=== PATIENT | female | born 2005 | race African-American/Black ===

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

== ENCOUNTER 2024-01-17 12:41 | Emergency (ER) | payer OTHER ==
[~2024-01-17] VITALS: Ht 154.9 cm; Wt 65.8 kg
[~2024-01-17 12:41] MED LIST: AMOX1TAB5 PO; TUSSIN DM LIQU118 ML PO; ZYRTEC10 MG PO
[2024-01-17 14:25] LABS: HEMATOCRIT 39.9 % (36.0-45.00); HEMOGLOBIN 13.5 g/dL (12.0-15.00); MEAN CELL VOLUME 87.8 fL (80.00-100.00); MEAN CORPUSCULAR HEMOGLOBIN 29.6 pg (27.00-32.0); MEAN CORPUSCULAR HGB CONC 33.7 g/dl (32.0-36.0); PLATELET COUNT 366 K/uL (150-450); RED BLOOD COUNT 4.55 M/uL (4.00-6.00); RED CELL DISTRIBUTION WIDTH 13.7 % (11.5-14.5)
[2024-01-17 16:38] LABS: PH,URINE 7.5 (5.0-8.0); URINE APPEARANCE Clear; URINE BILIRRUBIN Negative (NEGATIVE); URINE BLOOD Negative; URINE COLOR Yellow; URINE GLUCOSE Negative (NEGATIVE); URINE LEUKOCYTE Negative; URINE NITRATE Negative; URINE PROTEIN Negative (NEGATIVE); URINE UROBILINOGEN 0.2 E.U./dl
[2024-01-17 16:39] LABS: URINE BACTERIA 33.9 uL (0.0-1933); URINE EPITHELIAL CELLS 1.6 uL (0.0-38.8)
[2024-01-17 16:41] LABS: URINE RBC 1.1 uL (0.0-20.8); URINE WBC 0.7 uL (0.0-23.2)
== END 2024-01-17 17:03 | disposition home or self-care (01) ==
LOC: EMR PED 12:41
DX: R10.9 Unspecified abdominal pain (principal); Z91.013 Allergy to seafood

== ENCOUNTER 2024-05-16 19:06 | Emergency (ER) | payer OTHER ==
[~2024-05-16] VITALS: Ht 154.9 cm; Wt 66.2 kg
[2024-05-16 20:43] LABS: CALCIUM 9.5 mg/dL (8.5-10.1); CREATININE SERUM 0.64 mg/dL (0.55-1.02); GFR 119.54; POTASSIUM 3.24 mEq/L (3.5-5.1)
== END 2024-05-16 21:29 | disposition home or self-care (01) ==
LOC: ER 19:07 → EMR PED 19:24
PROVIDERS: General Practice
DX: O26.891 Other specified pregnancy related conditions, first trimester (principal); Z3A.01 Less than 8 weeks gestation of pregnancy; R11.10 Vomiting, unspecified

== ENCOUNTER 2024-05-30 19:10 | Emergency (ER) | payer OTHER ==
[~2024-05-30] VITALS: Ht 160 cm; Wt 65.8 kg
[2024-05-30 21:44] LABS: HEMATOCRIT 39.7 % (36.0-45.00); HEMOGLOBIN 13.6 g/dL (12.0-15.00); MEAN CELL VOLUME 88.2 fL (80.00-100.00); MEAN CORPUSCULAR HEMOGLOBIN 30.1 pg (27.00-32.0); MEAN CORPUSCULAR HGB CONC 34.2 g/dl (32.0-36.0); PLATELET COUNT 390 K/uL (150-450)
== END 2024-05-30 23:31 | disposition home or self-care (01) ==
LOC: ER 19:12
PROVIDERS: General Practice
DX: O20.8 Other hemorrhage in early pregnancy (principal); Z91.013 Allergy to seafood; Z3A.01 Less than 8 weeks gestation of pregnancy

== ENCOUNTER 2024-07-11 05:49 | Emergency (ER) | payer OTHER ==
[~2024-07-11] VITALS: Ht 154.9 cm; Wt 68.0 kg
[2024-07-11] MEDS ORDERED: RINGERS SOLUTION,LACTATED 1,000 ML IV ONE (06:45)
[2024-07-11 07:43] LABS: HEMATOCRIT 43.9 % (36.0-45.00); MEAN CELL VOLUME 89.7 fL (80.00-100.00); MEAN CORPUSCULAR HEMOGLOBIN 30.6 pg (27.00-32.0); MEAN CORPUSCULAR HGB CONC 34.2 g/dl (32.0-36.0); PLATELET COUNT 346 K/uL (150-450); RED CELL DISTRIBUTION WIDTH 13.6 % (11.5-14.5)
[2024-07-11 08:24] LABS: CALCIUM 9.8 mg/dL (8.5-10.1); CREATININE SERUM 0.42 mg/dL (0.55-1.02); GFR 194.36; POTASSIUM 3.66 mEq/L (3.5-5.1)
[2024-07-11 08:33] LABS: INR 1.03; PARTIAL THROMBOPLASTIN TIME 29.6 SECONDS (22.0-34.0); PROTHROMBIN TIME 11.2 SECONDS (9.0-11.5)
[2024-07-11 10:06] LABS: PH,URINE 5.5 (5.0-8.0); URINE APPEARANCE Clear; URINE BILIRRUBIN Negative (NEGATIVE); URINE BLOOD Large; URINE COLOR Yellow; URINE GLUCOSE Negative (NEGATIVE); URINE LEUKOCYTE Negative; URINE NITRATE Negative; URINE PROTEIN 30 (NEGATIVE); URINE UROBILINOGEN 0.2 E.U./dl
[2024-07-11 10:12] LABS: URINE EPITHELIAL CELLS 15.2 uL (0.0-38.8); URINE RBC 14.8 uL (0.0-20.8); URINE WBC 29.6 uL (0.0-23.2)
[2024-07-11 12:06] LABS: URINE CAST 0.15 uL (0.0-1.40); URINE KETONE 80 (NEGATIVE)
== END 2024-07-11 13:11 | disposition home or self-care (01) ==
LOC: ER 05:50
PROVIDERS: General Practice
DX: O20.8 Other hemorrhage in early pregnancy (principal); Z3A.12 12 weeks gestation of pregnancy; Z87.09 Personal history of other diseases of the respiratory system; Z91.013 Allergy to seafood

== ENCOUNTER 2024-09-05 14:17 | Outpatient (CLI) | payer OTHER | END 2024-09-05 14:18 | disposition home or self-care (01) | LOC: PRENATAL 14:17 | PROVIDERS: ATTEND Obstetrics & Gynecology Maternal & Fetal Medicine | DX: O44.00 Complete placenta previa NOS or without hemorrhage, unspecified trimester (principal); Z3A.20 20 weeks gestation of pregnancy ==

== ENCOUNTER 2024-09-20 14:02 | Emergency (ER) | payer OTHER ==
[~2024-09-20] VITALS: Ht 154.9 cm; Wt 59.0 kg
[2024-09-20] MEDS ORDERED: PRENATAL + DHA1 EAC1 PO (14:22)
[2024-09-20] MEDS ORDERED: 0.9 % SODIUM CHLORIDE 1,000 ML IV STA (16:39)
[2024-09-20] MEDS ORDERED: ACETAMINOPHEN 500 MG GEL..CAP PO ONE (16:45)
[2024-09-20 17:43] LABS: HEMATOCRIT 36.6 % (36.0-45.00); HEMOGLOBIN 12.8 g/dL (12.0-15.00); MEAN CELL VOLUME 91.1 fL (80.00-100.00); MEAN CORPUSCULAR HGB CONC 35.1 g/dl (32.0-36.0); PLATELET COUNT 282 K/uL (150-450); RED BLOOD COUNT 4.02 M/uL (4.00-6.00); RED CELL DISTRIBUTION WIDTH 14.4 % (11.5-14.5)
[2024-09-20 18:12] LABS: CALCIUM 9.8 mg/dL (8.5-10.1); GFR 323.63; POTASSIUM 3.29 mEq/L (3.5-5.1)
[2024-09-20 18:15] LABS: CREATININE SERUM 0.27 mg/dL (0.55-1.02)
[2024-09-20 19:28] LABS: PH,URINE 5.5 (5.0-8.0); URINE APPEARANCE Clear; URINE BILIRRUBIN Negative (NEGATIVE); URINE BLOOD Negative; URINE COLOR Yellow; URINE GLUCOSE Negative (NEGATIVE); URINE LEUKOCYTE Trace; URINE NITRATE Negative; URINE PROTEIN 30 (NEGATIVE)
[2024-09-20 19:31] LABS: URINE BACTERIA 1166.6 uL (0.0-1933); URINE EPITHELIAL CELLS 93.8 uL (0.0-38.8); URINE WBC 82.4 uL (0.0-23.2)
[2024-09-20 19:49] LABS: URINE KETONE >=160 (NEGATIVE)
== END 2024-09-20 20:04 | disposition home or self-care (01) ==
LOC: EMR PED 14:04 → ER 14:04
PROVIDERS: Emergency Medicine
DX: O98.512 Other viral diseases complicating pregnancy, second trimester (principal); U07.1 COVID-19; O99.512 Diseases of the respiratory system complicating pregnancy, second trimester; J98.8 Other specified respiratory disorders; Z3A.22 22 weeks gestation of pregnancy; Z91.013 Allergy to seafood

== ENCOUNTER 2024-11-12 20:53 | Emergency (ER) | payer OTHER ==
[~2024-11-12] VITALS: Ht 154.9 cm; Wt 63.5 kg
[~2024-11-12 20:53] MED LIST changes: +PRENATAL + DHA1 EAC1 PO
[2024-11-12 22:11] LABS: HEMATOCRIT 36.3 % (36.0-45.00); HEMOGLOBIN 12.2 g/dL (12.0-15.00); MEAN CELL VOLUME 91.8 fL (80.00-100.00); MEAN CORPUSCULAR HGB CONC 33.7 g/dl (32.0-36.0); PLATELET COUNT 336 K/uL (150-450); RED BLOOD COUNT 3.95 M/uL (4.00-6.00); RED CELL DISTRIBUTION WIDTH 13.4 % (11.5-14.5)
[2024-11-12 22:40] LABS: ALBUMIN 2.9 gm/dL (3.4-5.0); BILIRUBIN TOTAL 0.2 mg/dL (0.3-1.2); CALCIUM 9.3 mg/dL (8.5-10.1); CREATININE SERUM 0.54 mg/dL (0.55-1.02); GFR 143.93; GLOBULINA 3.9 G/DL (2.4-3.5); POTASSIUM 3.5 mEq/L (3.5-5.1); TOTAL PROTEIN 6.8 gm/dL (6.4-8.2)
[2024-11-12 22:52] LABS: PH,URINE 6.5 (5.0-8.0); URINE APPEARANCE Clear; URINE BILIRRUBIN Negative (NEGATIVE); URINE BLOOD Negative; URINE COLOR Yellow; URINE GLUCOSE Negative (NEGATIVE); URINE KETONE Trace (NEGATIVE); URINE LEUKOCYTE Trace; URINE NITRATE Negative; URINE PROTEIN Negative (NEGATIVE); URINE UROBILINOGEN 0.2 E.U./dl
[2024-11-12 22:56] LABS: URINE BACTERIA 1051.3 uL (0.0-1933); URINE EPITHELIAL CELLS 143.2 uL (0.0-38.8); URINE WBC 66.3 uL (0.0-23.2)
== END 2024-11-12 23:25 | disposition home or self-care (01) ==
LOC: ER 20:55
DX: R53.81 Other malaise (principal); R51.9 Headache, unspecified; Z91.013 Allergy to seafood

== ENCOUNTER 2024-11-28 11:01 | Outpatient (CLI) | payer OTHER | END 2024-11-28 11:02 | disposition home or self-care (01) | LOC: PRENATAL 11:01 | PROVIDERS: ATTEND Obstetrics & Gynecology Maternal & Fetal Medicine | DX: O26.849 Uterine size-date discrepancy, unspecified trimester (principal); O36.8199 Decreased fetal movements, unspecified trimester, other fetus; Z3A.32 32 weeks gestation of pregnancy ==

== ENCOUNTER 2025-01-13 17:08 | Inpatient (IN) | payer OTHER ==
[~2025-01-13] VITALS: Ht 154.9 cm; Wt 71.7 kg
[2025-01-13 16:36] VITALS: BP 130/72
[~2025-01-13 17:08] MED LIST changes: +AMPICILLIN SODIUM 2,000 MG VIAL ONE
[2025-01-13 17:16] VITALS: BP 130/72
[2025-01-13] MEDS ORDERED: AMPICILLIN SODIUM 2,000 MG VIAL IV STA (17:19)
[2025-01-13] MEDS ORDERED: RINGERS SOLUTION,LACTATED 1,000 ML IV SCH (17:30)
[2025-01-13] MEDS ORDERED: MORPHINE SULFATE 4 MG/ML CARTRIDGE IV ONE (17:30)
[2025-01-13] MEDS ORDERED: PRENATAL TABLE1 EAC1 PO (17:44)
[2025-01-13 18:42] LABS: HEMATOCRIT 38.6 % (36.0-45.00); HEMOGLOBIN 12.8 g/dL (12.0-15.00); MEAN CORPUSCULAR HEMOGLOBIN 29.5 pg (27.00-32.0); MEAN CORPUSCULAR HGB CONC 33.2 g/dl (32.0-36.0); PLATELET COUNT 271 K/uL (150-450); RED BLOOD COUNT 4.33 M/uL (4.00-6.00); RED CELL DISTRIBUTION WIDTH 14.2 % (11.5-14.5)
[2025-01-13 19:03] LABS: INR < 0.93; PROTHROMBIN TIME 10.1 SECONDS (9.0-11.5)
[2025-01-13 19:08] LABS: ALBUMIN 3.1 gm/dL (3.4-5.0); BILIRUBIN TOTAL 0.24 mg/dL (0.3-1.2); CALCIUM 9.5 mg/dL (8.5-10.1); CREATININE SERUM 0.45 mg/dL (0.55-1.02); GFR 177.63; GLOBULINA 3.6 G/DL (2.4-3.5); POTASSIUM 3.85 mEq/L (3.5-5.1); TOTAL PROTEIN 6.7 gm/dL (6.4-8.2)
[2025-01-13] MEDS ORDERED: CHLORHEXIDINE GLUCONATE 120 ML BOTTLE TOP ONE ×2 (19:42→20:30)
[2025-01-13] MEDS ORDERED: LIDOCAINE HCL 1% 10ML VIAL ONE (19:42)
[2025-01-13] MEDS ORDERED: OXYTOCIN 20 UNITS/1000ML RL PIGGYBAG IV ONE ×2 (19:42→20:30)
[2025-01-13] MEDS ORDERED: ERYTHROMYCIN BASE OPHT 1GM EACH TUBE OP ONE ×2 (19:42→20:30)
[2025-01-13 20:25] VITALS: BP 80/50
[2025-01-13] MEDS ORDERED: ACETAMINOPHEN 325 MG TABLET PO PRN (20:30)
[2025-01-13] MEDS ORDERED: OxyCODONE HCL/APAP UD (PERCOCET) PO PRN (20:30)
[2025-01-13] MEDS ORDERED: LIDOCAINE HCL 1% 10ML VIAL IJ ONE (20:30)
[2025-01-13 20:41] VITALS: BP 115/60
[2025-01-13] MEDS ORDERED: AMPICILLIN SODIUM 1,000 MG VIAL IV SCH (21:00)
[2025-01-13 22:19] VITALS: BP 111/70
[2025-01-14 00:28] VITALS: BP 123/75
[2025-01-14 00:57] LABS: HEMATOCRIT 38.4 % (36.0-45.00); HEMOGLOBIN 12.8 g/dL (12.0-15.00); MEAN CELL VOLUME 89.3 fL (80.00-100.00); MEAN CORPUSCULAR HEMOGLOBIN 29.7 pg (27.00-32.0); MEAN CORPUSCULAR HGB CONC 33.3 g/dl (32.0-36.0); PLATELET COUNT 271 K/uL (150-450); RED CELL DISTRIBUTION WIDTH 13.8 % (11.5-14.5)
[2025-01-14 08:07] VITALS: BP 106/69
[2025-01-14] MEDS ORDERED: BENZOCAINE/MENTHOL 90 ML BOTTLE TOP SCH (09:00)
[2025-01-14] MEDS ORDERED: HYDROCORTISONE 2.5% 30 GM TUBE RECTAL SCH (09:00)
[2025-01-14 17:42] VITALS: BP 108/68
[2025-01-15] VITALS: BP 108/71
[2025-01-15 08:00] VITALS: BP 105/81
== END 2025-01-15 15:18 | disposition home or self-care (01) | DRG 807 ==
LOC: OB/GYN 17:08 → LDR 17:08 → OB/GYN 20:27
PROVIDERS: ADMIT Specialist; ATTEND Specialist
PROC: 10E0XZZ Delivery of Products of Conception, External Approach (ICD-10-PCS; principal; 2025-01-13)
PROC: 0UQG7ZZ Repair Vagina, Via Natural or Artificial Opening (ICD-10-PCS; 2025-01-13)
PROC: 4A1HXCZ Monitoring of Products of Conception, Cardiac Rate, External Approach (ICD-10-PCS; 2025-01-13)
DX: O71.4 Obstetric high vaginal laceration alone (principal); Z37.0 Single live birth; Z3A.39 39 weeks gestation of pregnancy

== ENCOUNTER 2025-03-21 03:26 | Emergency (ER) | payer OTHER ==
[~2025-03-21] VITALS: Ht 154.9 cm; Wt 65.8 kg
[~2025-03-21 03:26] MED LIST changes: -AMPICILLIN SODIUM 2,000 MG VIAL ONE; +PRENATAL TABLE1 EAC1 PO
[2025-03-21 04:11] LABS: BASO % 0.2 % (0.1-1.2); EOS # 0.15 (0.04-0.54); EOS % 1.3 % (0.7-7.0); HEMATOCRIT 40.5 % (34.1-44.9); HEMOGLOBIN 13.6 g/dL (11.2-15.7); LYMPH # 3.21 (1.18-3.74); LYMPH % 28.6 % (19.3-53.1); MEAN CORPUSCULAR HEMOGLOBIN 29.4 pg (25.6-32.2); MONO # 0.61 (0.24-0.82); MONO % 5.4 % (4.7-12.5); NEUT # 7.23 (1.56-6.13); NEUT % 64.3 % (34.0-71.1); PLATELET COUNT 396 K/uL (163-369); RED BLOOD COUNT 4.63 M/uL (3.93-5.22); RED CELL DISTRIBUTION WIDTH 13.6 % (11.6-14.4)
== END 2025-03-21 05:38 | disposition home or self-care (01) ==
LOC: ER 03:26
DX: N94.6 Dysmenorrhea, unspecified (principal); Z91.013 Allergy to seafood

== ENCOUNTER 2025-06-22 20:41 | Emergency (ER) | payer OTHER ==
[~2025-06-22] VITALS: Ht 157.5 cm; Wt 49.9 kg
[2025-06-22 21:48] LABS: BASO % 0.3 % (0.1-1.2); EOS # 0.19 (0.04-0.54); EOS % 1.8 % (0.7-7.0); LYMPH # 2.53 (1.18-3.74); LYMPH % 24.0 % (19.3-53.1); MEAN PLATELET VOLUME 10.30 fl (9.4-12.4); MONO # 0.66 (0.24-0.82); MONO % 6.3 % (4.7-12.5); NEUT # 7.12 (1.56-6.13); NEUT % 67.3 % (34.0-71.1); RED CELL DISTRIBUTION WIDTH 13.1 % (11.6-14.4)
== END 2025-06-23 00:20 | disposition home or self-care (01) ==
LOC: ER 20:41
PROVIDERS: General Practice
DX: O20.8 Other hemorrhage in early pregnancy (principal); Z3A.01 Less than 8 weeks gestation of pregnancy

== ENCOUNTER 2025-07-08 15:33 | Emergency (ER) | payer OTHER ==
[~2025-07-08] VITALS: Ht 154.9 cm; Wt 62.6 kg
[2025-07-08 16:38] LABS: BASO % 0.2 % (0.1-1.2); EOS # 0.08 (0.04-0.54); EOS % 0.7 % (0.7-7.0); LYMPH # 1.25 (1.18-3.74); LYMPH % 11.6 % (19.3-53.1); MEAN PLATELET VOLUME 10.40 fl (9.4-12.4); MONO # 0.46 (0.24-0.82); MONO % 4.3 % (4.7-12.5); NEUT # 8.94 (1.56-6.13); NEUT % 82.8 % (34.0-71.1); RED CELL DISTRIBUTION WIDTH 13.0 % (11.6-14.4)
[2025-07-08 17:04] LABS: URINE APPEARANCE Cloudy; URINE BILIRRUBIN Negative (NEGATIVE); URINE BLOOD Moderate; URINE COLOR Yellow; URINE GLUCOSE Negative (NEGATIVE); URINE KETONE 15 (NEGATIVE); URINE LEUKOCYTE Moderate; URINE NITRATE Negative; URINE PROTEIN 30 (NEGATIVE); URINE UROBILINOGEN 1.0 E.U./dl
[2025-07-08 17:08] LABS: URINE BACTERIA 2522.3 uL (0.0-1933); URINE CAST 1.61 uL (0.0-1.40); URINE EPITHELIAL CELLS 54.4 uL (0.0-38.8); URINE RBC 23.4 uL (0.0-20.8); URINE WBC 243.0 uL (0.0-23.2)
[2025-07-08 17:13] LABS: TYPE CELLS SQUAMOUS
[2025-07-08 17:21] LABS: COVID-19 AG NEGATIVE (NEGATIVE)
[2025-07-08 18:16] LABS: ALT/SGPT 14.0 U/L (12-78); AST/SGOT 13.0 U/L (15-37); BILIRUBIN TOTAL 0.56 mg/dL (0.3-1.2); BUN CREA RATIO 20.0 (7.0-25.0); CREATININE SERUM 0.46 mg/dL (0.55-1.02); GFR 173.18; GLOBULINA 3.2 G/DL (2.4-3.5); GLUCOSE FASTING 84.0 mg/dL (65-100); OSMOLALITY SERUM 279.0 MOSM/KG (275-295)
[2025-07-08 18:43] LABS: HCG QUANTITATIVE 25131.0 mUI/mL (1-3)
[2025-07-08] MEDS ORDERED: AMOX1TAB5 PO (20:25)
[2025-07-08] MEDS ORDERED: PEPCID AC20 MG PO (20:25)
== END 2025-07-08 20:30 | disposition home or self-care (01) ==
LOC: ER 15:33
PROVIDERS: General Practice
DX: O20.8 Other hemorrhage in early pregnancy (principal); Z3A.08 8 weeks gestation of pregnancy; R55 Syncope and collapse; I10 Essential (primary) hypertension; J45.909 Unspecified asthma, uncomplicated; Z91.013 Allergy to seafood; Z20.822 Contact with and (suspected) exposure to COVID-19; N39.0 Urinary tract infection, site not specified

== ENCOUNTER 2025-07-12 01:49 | Emergency (ER) | payer OTHER ==
[~2025-07-12] VITALS: Ht 154.9 cm; Wt 61.7 kg
[~2025-07-12 01:49] MED LIST changes: +PEPCID AC20 MG PO
[2025-07-12 03:50] LABS: BASO % 0.5 % (0.1-1.2); EOS # 0.22 (0.04-0.54); EOS % 2.1 % (0.7-7.0); LYMPH # 3.35 (1.18-3.74); LYMPH % 32.6 % (19.3-53.1); MEAN PLATELET VOLUME 10.70 fl (9.4-12.4); MONO # 0.56 (0.24-0.82); MONO % 5.4 % (4.7-12.5); NEUT # 6.08 (1.56-6.13); NEUT % 59.1 % (34.0-71.1); RED CELL DISTRIBUTION WIDTH 12.7 % (11.6-14.4)
[2025-07-12 04:09] LABS: INR 1.01
[2025-07-12 04:20] LABS: ALT/SGPT 16.0 U/L (12-78); AST/SGOT 12.0 U/L (15-37); BILIRUBIN TOTAL 0.18 mg/dL (0.3-1.2); BUN CREA RATIO 15.0 (7.0-25.0); CREATININE SERUM 0.52 mg/dL (0.55-1.02); GFR 150.34; GLOBULINA 3.4 G/DL (2.4-3.5); GLUCOSE FASTING 88.0 mg/dL (65-100); OSMOLALITY SERUM 283.0 MOSM/KG (275-295)
[2025-07-12] MEDS ORDERED: ONDANSETRON HCL 2 MG/ML VIAL ONE (05:44)
[2025-07-12] MEDS ORDERED: ONDANSETRON HCL 2 MG/ML VIAL IV ONE (05:45)
[2025-07-12] MEDS ORDERED: 0.9 % SODIUM CHLORIDE 1,000 ML IV SCH (05:45)
[2025-07-12 06:22] LABS: URINE APPEARANCE Turbid; URINE BILIRRUBIN Negative (NEGATIVE); URINE BLOOD Large; URINE COLOR Orange; URINE GLUCOSE Negative (NEGATIVE); URINE KETONE Negative (NEGATIVE); URINE LEUKOCYTE Small; URINE NITRATE Negative; URINE PROTEIN 30 (NEGATIVE); URINE UROBILINOGEN 0.2 E.U./dl
[2025-07-12 06:26] LABS: URINE BACTERIA 166.8 uL (0.0-1933); URINE EPITHELIAL CELLS 5.6 uL (0.0-38.8); URINE WBC 29.6 uL (0.0-23.2)
[2025-07-12 06:28] LABS: URINE CAST 0.35 uL (0.0-1.40); URINE RBC > 10558.9 uL (0.0-20.8)
== END 2025-07-12 08:52 | disposition home or self-care (01) ==
LOC: ER 01:49
PROVIDERS: Physician Assistant Medical
DX: Z33.2 Encounter for elective termination of pregnancy (principal); O20.8 Other hemorrhage in early pregnancy; Z3A.11 11 weeks gestation of pregnancy; Z91.013 Allergy to seafood

== ENCOUNTER 2025-08-23 12:54 | Emergency (ER) | payer OTHER ==
[~2025-08-23] VITALS: Ht 154.9 cm; Wt 56.2 kg
[2025-08-23 14:11] VITALS: BP 105/58; O2SAT 99
[2025-08-23] MEDS ORDERED: 0.9 % SODIUM CHLORIDE 1,000 ML IV STA (16:07)
[2025-08-23] MEDS ORDERED: FAMOTIDINE/PF 20 MG/2 ML VIAL IV STA (16:07)
[2025-08-23] MEDS ORDERED: ONDANSETRON HCL 2 MG/ML VIAL IV STA (16:07)
[2025-08-23] MEDS ORDERED: FAMOTIDINE/PF 20 MG/2 ML VIAL ONE (16:13)
[2025-08-23] MEDS ORDERED: ONDANSETRON HCL 2 MG/ML VIAL ONE (16:13)
[2025-08-23 16:37] LABS: BASO % 0.1 % (0.1-1.2); EOS # 0.08 (0.04-0.54); EOS % 0.9 % (0.7-7.0); LYMPH # 0.68 (1.18-3.74); LYMPH % 7.2 % (19.3-53.1); MEAN PLATELET VOLUME 10.30 fl (9.4-12.4); MONO # 0.46 (0.24-0.82); MONO % 4.9 % (4.7-12.5); NEUT # 8.14 (1.56-6.13); NEUT % 86.7 % (34.0-71.1); RED CELL DISTRIBUTION WIDTH 12.5 % (11.6-14.4)
[2025-08-23 16:59] LABS: BUN CREA RATIO 23.0 (7.0-25.0); CREATININE SERUM 0.53 mg/dL (0.55-1.02); GFR 147.07; GLUCOSE FASTING 90.0 mg/dL (65-100); OSMOLALITY SERUM 279.0 MOSM/KG (275-295)
== END 2025-08-23 18:18 | disposition home or self-care (01) ==
LOC: ER 12:54
PROVIDERS: General Practice
DX: R11.0 Nausea (principal); R53.81 Other malaise; Z91.013 Allergy to seafood